=== PATIENT | male | born 1945 | race Caucasian/White ===

== ENCOUNTER → 2017-11-21 | Emergency (ER) | payer OTHER ==
[~2017-11-21] VITALS: Ht 170.2 cm; Wt 86.2 kg
[~2017-11-21] MED LIST: GLIMEPIRIDE4 MG; JANUMET 50-1,01 EACH; SIMVASTATIN40 MG; VALSARTAN-HCTZ1 EAC1
== END | disposition left against medical advice (07) ==
LOC: ER 20:58
DX: Z53.20 Procedure and treatment not carried out because of patient's decision for unspecified reasons (principal)